=== PATIENT | female | born 1950 | race Caucasian/White ===

== ENCOUNTER 2018-06-11 09:25 | Outpatient (CLI) | payer MEDICARE ==
--- NOTE | 2018-06-11 12:29 | MMO ---
COMPARISON: HISTORY: A 68-year-old female. Routine screening mammography. Previous reduction 10 years ago. COMPARISON: 01/14/07, 02/03/08, 03/12/09, 06/07/12, 05/25/15. TECHNIQUE: CC and MLO views of both breasts are submitted for interpretation. This patient's mammogram is revie wed with the assistance of computer-aided detection. FINDINGS: Breasts are composed of scattered fibroglandular tissue. Bilaterally, no suspicious dominant mass, a rchitectural distortion, or suspicious calcification. Bilateral benign-appearing calcifications are noted. IMPRESSION: BI-RADS category 2, benign findings. RECOMMENDATION: Annual mammogram. BIRADS 2: Benign Finding(s) Routine annual screening mammography (for women over age 40) POS: [facility]
== END 2018-06-11 09:26 | disposition home or self-care (01) ==
LOC: SCSMAMMO 09:25
PROVIDERS: ATTEND Obstetrics & Gynecology
DX: Z12.31 Encounter for screening mammogram for malignant neoplasm of breast (principal)
CPT/HCPCS: 77067